=== PATIENT | female | born 1940 | race Caucasian/White ===

== ENCOUNTER 2016-04-15 11:13 | Day surgery (SDC) | payer MEDICARE, OTHER ==
[2016-04-14 08:29] VITALS: BMI 33.2
[~2016-04-15 11:13] MED LIST: LACTATED RINGERS 1,000 ML IV SCH; ceFAZolin 2 GM in SODIUM CHLORIDE 0.9% 100 ML IVPB ONE
[2016-04-15] MEDS ORDERED: LIDOCAINE 1% 20 ML VIAL (10MG/ML) FOR IV START INTRADERMA ONE (11:54)
[2016-04-15] MEDS ORDERED: ONDANSETRON 4 MG/2 ML VIAL IVP ONE ×2 (11:57→15:20)
[2016-04-15] MEDS ORDERED: KETOROLAC 30 MG/ML 1 ML VIAL ONE (12:21)
[2016-04-15] MEDS ORDERED: MIDAZOLAM 2 MG/2 ML VIAL ONE (12:21)
[2016-04-15] MEDS ORDERED: ePHEDrine 50 MG/ML 1 ML AMP ONE (12:21)
[2016-04-15] MEDS ORDERED: SUCCINYLCHOLINE CHLORIDE 100 MG/5 ML SYR IV ONE (12:21)
[2016-04-15] MEDS ORDERED: LIDOCAINE 1% INJ 10MG/ML (20 ML MDV) ONE (12:21)
[2016-04-15] MEDS ORDERED: LABETALOL 5 MG/ML VIAL MDV ONE (12:21)
[2016-04-15] MEDS ORDERED: PROPOFOL 10 MG/ML 20 ML VIAL IV ONE (12:21)
[2016-04-15] MEDS ORDERED: fentaNYL (PF) 50 MCG/ML 2 ML AMP ONE (12:21)
[2016-04-15] MEDS ORDERED: ceFAZolin 1,000 MG in SODIUM CHLORIDE 0.9% 1,000 ML IRRIGATION ONE (13:01)
[2016-04-15] MEDS ORDERED: BUPIVACAINE (PF) 0.5% 30 ML VIAL SQ ONE (14:34)
[2016-04-15 14:52] VITALS: TEMP 97
[2016-04-15] MEDS ORDERED: HYDROcodone/APAP 5-325MG 1 EACH TAB PO PRN ×2 (14:56)
[2016-04-15] MEDS ORDERED: ONDANSETRON 4 MG/2 ML VIAL IVP PRN (14:56)
[2016-04-15] MEDS ORDERED: HYDROmorphone 1 MG/ML 1 ML SYRINGE IVP PRN ×2 (14:56)
--- NOTE | 2016-04-15 15:00 | FL ---
EXAMINATION TYPE: FL guidance operating room, XR foot limited RT DATE OF EXAM: 04/15/2016 2:31 PM CLINICAL HISTORY: CHEILECTOMY procedure of foot. TECHNIQUE: Fluoroscopy. Intraoperative limited views right foot. COMPARISON: None. FINDINGS: Fluoroscopic guidance was provided during Cheilectomy procedure performed by Dr. Michele. A total of 26 seconds of fluoroscopic time was utilized during the procedure and 5 spot intraoperat danay images are acquired. Images acquired show placement of dorsal fixating plate across first metatarsophalangeal joint with a dditional fixating screw. IMPRESSION: As Above.
--- NOTE | 2016-04-15 15:12 | P.OP ---
Date of Procedure: 04/15/16 Preoperative Diagnosis: Failed right first MTP hemiarthroplasty, hallux rigidus Postoperative Diagnosis: Failed right first MTP hemiarthroplasty, hallux rigidus Procedure(s) Performed: 1. Right first MTP arthrodesis 2. Removal of deep implant right first MTP joint Anesthesia: PRIEOT Surgeon: Iván Michele Estimated Blood Loss (ml): 10 IV fluids (ml): 800 Pathology: none sent Condition: stable Disposition: PACU Indications for Procedure: The patient is a very pleasant 75-year-old female was seen in my office with a complaint of right foot pain. The patient had undergone a first MTP hemiarthroplasty many years ago. She initially did well but has had increasing pain, difficulty with shoe wear, and an uncomfortable prominence over the top of her foot. She initially attempted nonsurgical treatment but this eventually stopped working. She requested operative intervention. I recommended surgery was to remove the first MTP hemiarthroplasty and then to assess the amount of shortening of her first ray. We discussed in situ fusion versus distraction arthrodesis using iliac crest allograft. We also discussed the possibility of using proximal tibial bone graft. We discussed potential risks and complication of surgery including but not limited to risk of anesthesia, risk of superficial infection, risk of deep infection, risk of delayed wound healing , risk of wound necrosis, risk of nonunion of the arthrodesis site, risk of malunion of the arthrodesis site, risk of damage to local sensory nerves resulting in temporary or permanent numbness, risk of painful neuroma, risk of chronic pain, risk of chronic swelling, risk of difficulty with shoewear, risk of need for further surgery, risk of vascular compromise to the toe, and possibly loss of life or limb. The patient and her family understand these potential risks. Description of Procedure: The patient was identified in preoperative holding and the correct right foot was marked with my initials. I reviewed the consent form with the patient and her family and all their questions were answered. The patient was then brought back to the operating room. She was positioned on the operating room table and a general anesthetic was administered. All bony prominences were well-padded. A tourniquet was applied to the proximal aspect of her right thigh. A bone foam bump was placed under her right side. Preoperative antibiotics were administered. The patient's right leg was then prepped and draped in the standard sterile fashion. Prior to starting surgery timeout was performed identifying the correct patient, operative extremity, and procedure. The patient's leg was then elevated, exsanguinated with an Esmarch bandage, and the tourniquet was inflated to 250 mmHg. I began by outlining the incision over the dorsomedial aspect of her first MTP joint with a skin marker. Skin incision was made over the prior incision with a 15 blade scalpel. I dissected carefully down to the subcutaneous tissue to the capsule. The capsule was incised longitudinally in line with the skin incision. The dorsal capsule and EHL tendon was retracted laterally. I circumferentially exposed the first metatarsal head and base of the proximal phalanx. Tissue was removed from the base the proximal phalanx with a Tony. Osteotomes were used to gently pry the mor-cap free. The hemiarthroplasty cap appeared loose and was easily removed. After the implant was removed I debrided the joint. A rongeur was used to contour the osteophytes off of the distal first metatarsal and base the proximal phalanx. All bone was passed off to the back table to save for later use as bone graft. Fibrous tissue was removed from the first metatarsal head and base of the proximal phalanx. I then placed a K wire down the central aspect of the metatarsal and a corresponding concave reamer was used to remove the remaining articular cartilage down to bleeding subchondral bone. The K wires withdrawn and used to perforate the subchondral bone to help facilitate fusion. I then placed the K wire down the central axis of the proximal phalanx and used the corresponding convex reamer to remove the remaining articular cartilage down to healthy bleeding bone. A series of curettes was used to remove the fibrous tissue on the stem of the hemiarthroplasty implant. A K wire was then used to perforate the subchondral plate to help facilitate fusion. At this point both the first metatarsal head and base the proximal phalanx were prepared for fusion. I assessed the length of the first ray and there did not appear to be any significant shortening of the first metatarsal compared to the second. I elected not to perform a distraction arthrodesis at this point due to minimal shortening of the first ray. I then used the previously obtained bone graft obtained locally to pack the defect in the proximal phalanx. I was actually able to get quite a bit of bone packed in. I assessed the prepared joint surfaces and there did not appear to be any defects requiring more bone graft site elected not to perform proximal tibial bone graft harvest. The wound was then copiously irrigated. I then positioned the joint for fusion in slight valgus and dorsiflexion. A 0.0625 K wire was placed laterally through the joint to hold the reduction. I then verified positioning of the big toe with C- arm and clinically using a flat plate. Once I was happy with positioning of the joint I placed a 2.7 mm lag screw across the first MTP joint. A 2.7 mm drill bit was used to create a gliding hole on the medial aspect of the base of the proximal phalanx and a 2.0 mm drill bit was used to create a threaded hole in the lateral aspect of the first metatarsal. A fully threaded 2.7 mm lag screw was then placed generating excellent compression across the joint. C-arm was used to verify position of the joint and lag screw. I then placed a revision first MTP fusion plate over the first ray. It was bent to fit the dorsal aspect of prepared bone and held in place with 2 olive tipped K wires. I then proceeded to place 2 nonlocking screws in the most distal 2 holes of the plate in the base of the proximal phalanx. I then placed a 2.7 mm nonlocking screw in the proximal aspect of an eccentric hole proximally in the first metatarsal to help generate compression. I then proceeded to place a 2.7 mm nonlocking screw in the most proximal hole. I then placed 2.7 mm locking screws in the head of the first metatarsal and base of the proximal phalanx. At this point C-arm was brought in for final x-rays. AP x-ray the foot showed acceptable positioning of the first MTP joint with minimal shortening. The hardware appeared to be in appropriate position. There is excellent compression across the joint. Lateral x-ray was taken and showed the plate sitting nicely on the dorsal cortex of the first metatarsal and proximal phalanx. At this point the tourniquet was let down. The wound was copiously irrigated using dural saline. The capsule was closed with a running 0 Vicryl stitch. The deep subcu was reapproximated using 2-0 Vicryl. The skin was closed using 3-0 nylon horizontal mattress stitches. After the incision was closed I verified with the semiconductor manufacturing technician that all instrument sponge and sharp counts were correct. A sterile dressing consisting of Betadine soaked Adaptic, 4 x 4, and web roll was applied. The drapes were then taken down. A very well- padded bulky Roberts type splint was applied. The patient was awoken from her anesthetic and brought to PACU having tied the procedure well. Plan: The patient is going to discharge home as an outpatient. She is remain strictly nonweightbearing on her right leg. She is to leave her splint on at all times. We'll plan on seeing her back in the office in 2 weeks for spine removal and wound exam.
[2016-04-15] MEDS ORDERED: METOCLOPRAMIDE 5 MG/ML 2 ML VIAL IVP ONE (15:41)
[2016-04-15] MEDS ORDERED: PROMETHAZINE INJ 25 MG/ML 1 ML VIAL IVPB ONE (15:58)
[2016-04-15] MEDS ORDERED: HYDROmorphone 1 MG/ML 1 ML SYRINGE IVP ONE (16:17)
[2016-04-15 16:19] VITALS: RESP 16
[2016-04-15 17:04] VITALS: BP 115/70; PULSE 70
== END 2016-04-15 17:49 | disposition home or self-care (01) ==
LOC: OR 11:13
PROVIDERS: ATTEND Orthopaedic Surgery
DX: T84.038A Mechanical loosening of other internal prosthetic joint, initial encounter (principal); M19.071 Primary osteoarthritis, right ankle and foot; M20.21 Hallux rigidus, right foot; Z79.899 Other long term (current) drug therapy; Z79.1 Long term (current) use of non-steroidal anti-inflammatories (NSAID)

== ENCOUNTER → 2016-07-09 | Outpatient (CLI) | payer MEDICARE, OTHER ==
[2016-07-09 10:50] LABS: ALT 22 U/L (9-52); AST 18 U/L (14-36); Alkaline Phosphatase 92 U/L (38-126); Anion Gap 8 mmol/L; Blood Urea Nitrogen 22 mg/dL (7-17); Calcium 9.7 mg/dL (8.4-10.2); Carbon Dioxide 32 mmol/L (22-30); Chloride 102 mmol/L (98-107); Cholesterol 215 mg/dL (<200); Glucose 93 mg/dL (74-99); HDL Cholesterol 69 mg/dL (40-60); Non-African American GFR(MDRD) >60 (>60 ml/min/1.73 sqM); Potassium 3.9 mmol/L (3.5-5.1); Sodium 142 mmol/L (137-145); Total Bilirubin 0.8 mg/dL (0.2-1.3); Total Protein 7.4 g/dL (6.3-8.2); Triglycerides 70 mg/dL (<150)
== END | disposition home or self-care (01) ==
LOC: LABWHC1 08:51
PROVIDERS: ATTEND Internal Medicine Interventional Cardiology
DX: E78.5 Hyperlipidemia, unspecified (principal); I10 Essential (primary) hypertension
CPT/HCPCS: 36415; 80053; 80061; 84443

== ENCOUNTER → 2017-01-13 | Outpatient (CLI) | payer MEDICARE, OTHER ==
[2017-01-13 11:59] LABS: ALT 35 U/L (9-52); AST 21 U/L (14-36); Cholesterol 141 mg/dL (<200); Creatine Kinase 47 U/L (30-135); HDL Cholesterol 61 mg/dL (40-60)
== END | disposition home or self-care (01) ==
LOC: LABWHC1 10:40
PROVIDERS: ATTEND Internal Medicine Interventional Cardiology
DX: I10 Essential (primary) hypertension (principal)
CPT/HCPCS: 36415; 80061; 82550; 84450; 84460

== ENCOUNTER → 2017-08-12 | Outpatient (CLI) | payer MEDICARE, OTHER ==
[2017-08-12 11:51] LABS: HCT 42.7 % (34.0-46.0); HGB 14.9 gm/dL (11.4-16.0); MCH 31.2 pg (25.0-35.0); MCHC 34.9 g/dL (31.0-37.0); MCV 89.3 fL (80.0-100.0); Mean Platelet Volume 8.7; Platelet Count 197 k/uL (150-450); RBC 4.78 m/uL (3.80-5.40); RDW 12.9 % (11.5-15.5); WBC 6.1 k/uL (3.8-10.6)
[2017-08-12 11:54] LABS: Appearance,Urine Cloudy (Clear); Bacteria,Urine Rare /hpf; Bilirubin,Urine Negative (Negative); Blood,Urine Moderate (Negative); Color,Urine Yellow; Glucose,Urine (UA) Negative (Negative); Ketones,Urine Negative (Negative); Leukocyte Esterase,Urine Moderate (Negative); Mucus,Urine Rare /hpf; Nitrite,Urine Positive (Negative); Protein,Urine Negative (Negative); RBC,Urine 5 /hpf (0-5); Specific Gravity,Urine 1.009 (1.001-1.035); Urobilinogen,Urine <2.0 mg/dL (<2.0); WBC,Urine 4 /hpf (0-5)
[2017-08-12 11:57] LABS: Partial Thromboplastin Time 22.9 sec (22.0-30.0); Prothrombin Time 10.2 sec (9.0-12.0)
[2017-08-12 12:04] LABS: ALT 34 U/L (9-52); AST 20 U/L (14-36); Albumin 4.1 g/dL (3.5-5.0); Alkaline Phosphatase 92 U/L (38-126); Anion Gap 13 mmol/L; Blood Urea Nitrogen 13 mg/dL (7-17); Carbon Dioxide 30 mmol/L (22-30); Chloride 100 mmol/L (98-107); Glucose 97 mg/dL (74-99); Potassium 3.5 mmol/L (3.5-5.1); Sodium 143 mmol/L (137-145); Total Bilirubin 0.7 mg/dL (0.2-1.3); Total Protein 6.7 g/dL (6.3-8.2)
== END | disposition home or self-care (01) ==
LOC: LABPAT 11:10
PROVIDERS: ATTEND Orthopaedic Surgery
DX: Z01.812 Encounter for preprocedural laboratory examination (principal); Z51.81 Encounter for therapeutic drug level monitoring; Z79.01 Long term (current) use of anticoagulants
CPT/HCPCS: 36415; 80053; 81001; 85027; 85610; 85730; 87070

== ENCOUNTER → 2017-08-23 | Outpatient (CLI) | payer MEDICARE, OTHER ==
[2017-08-23 10:37] LABS: Appearance,Urine Clear (Clear); Bilirubin,Urine Negative (Negative); Blood,Urine Moderate (Negative); Color,Urine Yellow; Glucose,Urine (UA) Negative (Negative); Ketones,Urine Negative (Negative); Leukocyte Esterase,Urine Trace (Negative); Mucus,Urine Rare /hpf; Nitrite,Urine Negative (Negative); PH, Urine 6.5 (5.0-8.0); Protein,Urine Negative (Negative); RBC,Urine 19 /hpf (0-5); Specific Gravity,Urine 1.018 (1.001-1.035); Squamous Epithelial Cell,Urine <1 /hpf (0-4); WBC,Urine 2 /hpf (0-5)
== END | disposition home or self-care (01) ==
LOC: LABPAT 09:29
PROVIDERS: ATTEND Orthopaedic Surgery
DX: Z01.812 Encounter for preprocedural laboratory examination (principal); M16.12 Unilateral primary osteoarthritis, left hip
CPT/HCPCS: 81001

== ENCOUNTER 2017-08-24 09:27 | Inpatient (IN) | payer MEDICARE, OTHER ==
[2017-08-23 09:01] VITALS: BMI 32.2
[~2017-08-24 09:27] MED LIST changes: +ACETAMINOPHEN TAB 500 MG TAB PO ONE; +DEXAMETHASONE SOD PHOSPHATE 10 MG/ML 1 ML VIAL IV ONE; +LIDOCAINE 1% 20 ML VIAL (10MG/ML) FOR IV START INTRADERMA PRN; +MELOXICAM 7.5 MG TAB PO ONE; +MIDAZOLAM 2 MG/2 ML VIAL IV PRN; +ROPIVACAINE 246.25 MG, EPINEPHrine 0.5 MG, KETOROLAC 30 MG, cloNIDine HCL/PF 80 MCG, WA... MISCELLANE ONE; +SCOPOLAMINE 1.5MG/72HR PATCH TRANSDERM ONE; +TRANEXAMIC ACID 1,000 MG in SODIUM CHLORIDE 0.9% 50 ML IVPB ONE; -ceFAZolin 2 GM in SODIUM CHLORIDE 0.9% 100 ML IVPB ONE; +ceFAZolin IN SWFI 2 GM/20 ML SYRINGE IVP ONE; +fentaNYL (PF) 50 MCG/ML 2 ML AMP IV PRN
[2017-08-24] MEDS ORDERED: ONDANSETRON 4 MG/2 ML VIAL ONE (10:16)
[2017-08-24] MEDS ORDERED: fentaNYL (PF) 50 MCG/ML 2 ML AMP ONE (10:41)
[2017-08-24] MEDS ORDERED: LACTATED RINGERS 1,000 ML BAG IV ONE (10:41)
[2017-08-24] MEDS ORDERED: ePHEDrine SULFATE/0.9% NACL/PF 50 MG/5 ML SYRINGE IV ONE (10:41)
[2017-08-24] MEDS ORDERED: SODIUM CHLORIDE 0.9% 100 ML BAG ONE (10:41)
[2017-08-24] MEDS ORDERED: PROPOFOL 10 MG/ML 20 ML VIAL IV ONE (10:41)
[2017-08-24] MEDS ORDERED: TRANEXAMIC ACID 1,000 MG/10 ML VIAL ONE (10:41)
[2017-08-24] MEDS ORDERED: MIDAZOLAM 2 MG/2 ML VIAL ONE (10:41)
[2017-08-24] MEDS ORDERED: HEPARIN SODIUM,PORCINE 10,000 UNIT/ML 1 ML VIAL ONE (10:41)
--- NOTE | 2017-08-24 12:21 | P.OP ---
Date of Procedure: 08/24/17 Preoperative Diagnosis: Severe osteoarthritis left hip Postoperative Diagnosis: Severe osteoarthritis left hip Procedure(s) Performed: Left total hip arthroplasty with a direct anterior approach Implants: Rogel and nephew Polarstem size 2 standard Rogel [employer] Nephew R3, 3 hole acetabular shell, 48 mm Rogel [employer] Nephew reflection 6.5 mm cancellus screw, 20 mm 2 Rogel [employer] Nephew R3, XLPE 20 acetabular liner Rogel & Nephew Oxinium femoral head 32 m, -3 All components were press-fit. The articulation is Oxinium on polyethylene. Anesthesia: spinal Surgeon: Erick Johns Machine Stapler #1: Gracie Bernabe Estimated Blood Loss (ml): 250 (61 mL returned with Cell Saver) Pathology: other (Femoral head) Condition: stable Disposition: PACU Indications for Procedure: After failure of conservative treatment we discussed the surgical and nonsurgical treatment options at length. Patient wishes to proceed with a total hip arthroplasty with a direct anterior approach. Complications specific to this procedure were discussed at length, including but not limited to infection, leg length discrepancy, dislocation, and nerve injury. Patient is aware of all these complications and informed consent was obtained Operative Findings: The operative findings are consistent with severe osteoarthritis of the left hip Description of Procedure: Patient was seen and evaluated in the preoperative area, consent was reviewed, and the surgical site was marked with a skin marker. Patient was then brought to the operating room and given prophylactic antibiotics intravenously. 1 g of Tranexamic acid was also given. A spinal anesthetic was administered by the anesthesia department. The patient was then placed on the [place] table with the bony prominences well-padded. The hip area was then prepped and draped in usual sterile fashion. A universal timeout was then performed, which confirmed the patient's name, surgical site, ALLERGIES, and procedure being performed. Next the incision site was located at 1 cm distal and 1 cm lateral to the anterior superior iliac spine. The skin and subcutaneous tissues were sharply incised. Incision was carefully dissected down to the fascia overlying the tensor fascia ashley muscle. This fascia was then incised in line with the incision. Next, using blunt finger dissection, the tensor fascia ashley muscle was dissected off its investing fascia. The muscle was then carefully retracted laterally with a cobra retractor over the lateral neck of the femur. Next, the circumflex vessels were identified and cauterized using the AquaMantis device. The anterior hip capsule was then exposed. The capsule was then opened and an inverted T fashion. Cobra retractors were then placed intracapsularly. The proximal femur was then visualized. The femoral neck was then osteotomized appropriate level above the lesser trochanter. Small amount of traction was placed with the [place] table. A small wedge of bone was then removed from the remaining femoral head. Next, using a corkscrew femoral head was easily removed from the acetabulum. On gross visual inspection, the femoral head had complete loss of articular cartilage in multiple periarticular osteophytes. Attention was then turned to the acetabulum. the acetabulum was exposed and any remaining labrum was excised. Sequential reaming of the acetabulum was performed using fluoroscopic guidance. When the appropriate size was reached, a trial was then placed. The position and fit of the trial was checked with fluoroscopy. The trial was then removed. Then, using fluoroscopic guidance, the final implant was impacted at 20 of anteversion and 40 of abduction, and fully seated in the acetabulum. 2 screws were then placed in the acetabulum. Again fluoroscopy was used to check position of the screws. Next, the liner was then impacted, with a 20 elevated liner located in the anterior superior quadrant. Component locking was confirmed. Attention was then directed to the femur. With the aid of the [place] table, the femur was externally rotated to approximately 130, extended, and abducted under the opposite leg. A side hook was then placed under the proximal femur, and the side hook elevator was used to elevate the proximal femur. Retractors were then placed. A capsular release was performed, as well as a release of the conjoined tendon, which afforded excellent visualization of the proximal femur. Next, a box osteotome was used to lateralize the proximal femur. A scrap handler was then used to locate the femoral canal. Sequential broaching was then performed with appropriate size which afforded excellent fixation in the proximal femur. A trial was then placed with appropriate head and neck, and the hip was gently reduced with the aid of the [place] table. Fluoroscopy was then used to check position of the components, as well as to ensure equal leg lengths. The hip was then gently dislocated and the trials were then removed. Final implants were then impacted and the hip was again reduced. Final fluoroscopic x-rays confirmed that the components were in anatomic position, as well as equal leg lengths. The hip was also taken through range of motion, and found to be stable. The hip was then copiously irrigated with antibiotic solution with pulsatile lavage. The hip was then irrigated with Irrisept solution. The soft tissues were then injected with a ropivacaine solution, which consisted of 246.25 mg of ropivacaine, 0.5 mg of epinephrine, 30 mg of Toradol, 80 g of clonidine, and 48.45 mL of sterile water, for a total of 100 mL of fluid injected. A second dose of 1 g of Tranexamic acid was also given. the fascia was then closed with 2-0 strata fix suture. The subcutaneous tissue was closed with 3-0 Vicryl. The subcuticular tissue was closed with 3-0 strata fix suture. The skin was then closed with Dermabond glue and a sterile silver dressing. The patient was then transferred to the recovery room in stable condition. The certified nursing assistant instructor ILDA Lance was required due to the complexity of surgery, and the need for skilled surgical coordinator for positioning, draping, exposure, retraction, and closure of the wound.
--- NOTE | 2017-08-24 12:21 | FL ---
EXAMINATION TYPE: FL guidance operating room DATE OF EXAM: 08/24/2017 CLINICAL HISTORY: Left hip replacement surgery TECHNIQUE: Fluoroscopy. Limited intraoperative views left hip. COMPARISON: None. FINDINGS: Fluoroscopic guidance was provided during hip replacement procedure performed by Dr. Lexie ferrera. A total of 64 seconds of fluoroscopic time was utilized during the procedure and 2 spot intraop erative images are acquired. Images acquired show metallic hardware from total left hip arthroplasty satisfactory in position on single frontal projection. IMPRESSION: As Above.
[2017-08-24] MEDS ORDERED: MAGNESIUM HYDROXIDE 2,400 MG/10 ML CUP PO PRN (12:40)
[2017-08-24] MEDS ORDERED: HYDROmorphone 0.5 MG/0.5 ML SYRINGE IVP PRN ×3 (12:40)
[2017-08-24] MEDS ORDERED: hydrOXYzine PAMOATE 25 MG CAP PO PRN (12:40)
[2017-08-24] MEDS ORDERED: DIAZEPAM 5 MG TAB PO PRN ×2 (12:40)
[2017-08-24] MEDS ORDERED: HYDROcodone/APAP 5-325MG 1 EACH TAB PO PRN ×2 (12:40)
[2017-08-24] MEDS ORDERED: ONDANSETRON 4 MG/2 ML VIAL IVP PRN (12:40)
[2017-08-24] MEDS ORDERED: NALOXONE 0.4 MG/ML 1 ML VIAL IV PRN (12:40)
--- NOTE | 2017-08-24 13:09 | XR ---
EXAMINATION TYPE: XR Hip Limited LT DATE OF EXAM: 08/24/2017 CLINICAL HISTORY: Left hip pain and osteoarthritis. TECHNIQUE: Single AP portable view of left hip is obtained immediately postoperatively. COMPARISON: None. FINDINGS: Metallic hardware from left hip arthroplasty is seen and appears satisfactory in alignment and position. There is evidence of recent surgery with minimal subcutaneous gas noted laterally. IMPRESSION: Metallic hardware from left hip arthroplasty is satisfactory in position.
--- NOTE | 2017-08-24 14:18 | P.CONS ---
History of Present Illness - Reason for Consult Consult date: 08/24/17 Medical management - History of Present Illness This is a 77-year-old female patient of Dr. Sherwood with past medical history of hypertension, hyperlipidemia, obstructive sleep apnea using a dental plate, osteoarthritis, chronic back pain status post lumbar surgery. Patient has been admitted under the care of Dr. Erick Johns status post left total hip arthroplasty. Patient has had no postop complications. Her blood pressure is on the lower side. She denies any lightheadedness or dizziness. No nausea or vomiting. Patient states her pain is controlled at this time. Review of Systems All systems: negative Constitutional: Denies chills, Denies fever Eyes: denies blurred vision, denies pain Ears, nose, mouth and throat: Denies headache, Denies sore throat Cardiovascular: Denies chest pain, Denies shortness of breath Respiratory: Denies cough Gastrointestinal: Denies abdominal pain, Denies diarrhea, Denies nausea, Denies vomiting Genitourinary: Denies dysuria, Denies hematuria Musculoskeletal: Denies myalgias Integumentary: Denies pruritus, Denies rash Neurological: Denies numbness, Denies weakness Psychiatric: Denies anxiety, Denies depression Endocrine: Denies fatigue, Denies weight change Past Medical History Past Medical History: Hypertension, Osteoarthritis (OA), Sleep Apnea/CPAP/BIPAP Additional Past Medical History / Comment(s): Obstructive sleep apnea uses a dental plate versus cpap History of Any Multi-Drug Resistant Organisms: None Reported Past Surgical History: Back Surgery, Hysterectomy, Joint Replacement, Orthopedic Surgery, Tonsillectomy Additional Past Surgical History / Comment(s): left knee replacement, peter carapal tunnel, peter cataract removal and intraocular lens implants, lumbar fusion at L5, left total hip arthroplasty anterior approach Past Anesthesia/Blood Transfusion Reactions: Motion Sickness Past Psychological History: No Psychological Hx Reported Smoking Status: Never smoker Past Alcohol Use History: Occasional Additional Past Alcohol Use History / Comment(s): Patient is a lifelong nonsmoker. She denies any medical marijuana, marijuana or street drug use. She drinks alcohol occasionally. Past Drug Use History: None Reported - Past Family History Mother Family Medical History: No Reported History Additional Family Medical History / Comment(s): Mother at age 62 with history of diabetes and coronary artery disease. Father Additional Family Medical History / Comment(s): Patient does not know any history on her father. She was an only child. Patient has 5 adult children with no major medical problems. Medications and Allergies Home Medications Medication Instructions Recorded Confirmed Type Hydrochlorothiazide [Hydrodiuril] 25 mg PO DAILY 04/14/16 08/24/17 History Hydrocodone/Acetaminophen [[place] 1 tab PO Q8HR PRN 04/14/16 08/24/17 History 5-325] amLODIPine BESYLATE [Norvasc] 5 mg PO DAILY 04/14/16 08/24/17 History Aspirin [Adult Low Dose Aspirin EC] 81 mg PO DAILY 08/23/17 08/24/17 History Atorvastatin [Lipitor] 10 mg PO DAILY 08/23/17 08/24/17 History Cetirizine HCl [Zyrtec] 10 mg PO DAILY 08/23/17 08/24/17 History Multivitamins, Thera [Multivitamin 1 tab PO DAILY 08/23/17 08/24/17 History (formulary)] [place]-3 Fatty Acids [[place]-3] 1,000 mg PO DAILY 08/23/17 08/24/17 History Allergies Allergy/AdvReac Type Severity Reaction Status Date / Time codeine Allergy Vomiting Verified 08/24/17 13:40 Physical Exam Vitals: Vital Signs Temp Pulse Resp BP Pulse Ox 08/24/17 13:33 83 16 107/75 98 08/24/17 13:16 86 16 110/55 99 08/24/17 13:01 75 16 109/55 100 08/24/17 12:45 77 16 109/56 98 08/24/17 12:39 97.6 F 84 16 109/55 93 L 08/24/17 09:50 98.0 F 73 16 109/53 95 Intake and Output 08/23/17 08/24/17 08/24/17 22:59 06:59 14:59 Intake Total 1800 Output Total 150 Balance 1650 Intake: IV 1800 Output: Estimated Blood Loss 150 Gen: This is a 77-year-old female. She is in bed and appears to be comfortable and in no acute distress. HEENT: Head is atraumatic, normocephalic. Pupils equal, round. Sclerae is anicteric. Conjunctiva pink. Mucous members of the mouth are slightly dry. Dentition is in good order. No thrush noted. NECK: Supple. No JVD. No lymphadenopathy. No thyromegaly. LUNGS: Clear to auscultation. No wheezes or rhonchi. No intercostal retractions. HEART: Regular rate and rhythm. No murmur. ABDOMEN: Soft. Bowel sounds are present. No masses. No tenderness. No Mena catheter. EXTREMITIES: No pedal edema. No calf tenderness. Dorsalis pedis is +2 bilaterally. SIA hose on bilaterally. Small dressing in place to the right anterior hip with no breakthrough drainage or bleeding. NEUROLOGICAL: Patient is awake, alert and oriented x3. Cranial nerves 2 through 12 are grossly intact. Assessment and Plan Plan: 1. Osteoarthritis left hip status post total hip arthroplasty, anterior approach. Patient has had no postop complications. Monitor blood pressure. Continue current pain management. Incentive spirometry to reduce incidence of atelectasis and hospital-acquired pneumonia. Continue SIA hose. Patient is on aspirin 325 mg twice daily for DVT prophylaxis. 2. Hypertension. Patient is on Norvasc which will be resumed tomorrow with parameters. Hydrochlorothiazide will be on hold. 3. Hyperlipidemia. Continue Lipitor 10 mg daily. 4. Obstructive sleep apnea, uses dental plate which will be continued. to bring from home. 5. Seasonal ALLERGIES, stable. Discharge plan: To be determined Impression and plan of care have been directed as dictated by the signing physician. Yue Lucia nurse practitioner acting as scribe for signing physician.
[2017-08-24] MEDS: SODIUM CHLORIDE 0.9% 1,000 ML IV SCH (14:56)
[2017-08-24] MEDS: ceFAZolin IN SWFI 2 GM/20 ML SYRINGE IVP SCH (18:03)
[2017-08-24] MEDS: ASPIRIN 325 MG TAB PO SCH (20:22)
[2017-08-24] MEDS ORDERED: SENNOSIDES-DOCUSATE SODIUM 1 EACH TAB PO SCH (21:00)
[2017-08-25] MEDS: ceFAZolin IN SWFI 2 GM/20 ML SYRINGE IVP SCH (00:20)
[2017-08-25] MEDS: SODIUM CHLORIDE 0.9% 1,000 ML IV SCH (04:29)
[2017-08-25 07:15] VITALS: BP 101/56; PULSE 63; RESP 14; TEMP 97.8
[2017-08-25 08:01] LABS: Basophils % (A) 0 %; Eosinophils % (A) 0 %; HCT 34.4 % (34.0-46.0); Lymphocytes # (A) 0.7 k/uL (1.0-4.8); Lymphocytes % (A) 8 %; MCH 29.8 pg (25.0-35.0); MCHC 32.7 g/dL (31.0-37.0); Mean Platelet Volume 7.9; Monocytes # (A) 0.5 k/uL (0-1.0); Monocytes % (A) 5 %; Neutrophils # (A) 7.3 k/uL (1.3-7.7); Neutrophils % (A) 85 %; Platelet Count 175 k/uL (150-450); RBC 3.78 m/uL (3.80-5.40); WBC 8.5 k/uL (3.8-10.6)
[2017-08-25 08:06] LABS: HGB 11.2 gm/dL (11.4-16.0)
--- NOTE | 2017-08-25 08:49 | P.DS ---
Providers Date of admission: 08/24/17 09:27 Expected date of discharge: 08/25/17 Attending physician: Erick Johns Consults: 08/24/17 12:40 Consult Physician Routine Consulting Provider: Sara Sherwood Consult Reason/Comments: medical management Do you want consulting provider notified?: Yes 08/24/17 13:27 Consult Physician Routine Consulting Provider: Augustine Ruiz Reason/Comments: medical management Do you want consulting provider notified?: Yes Primary care physician: Sara Sherwood - Discharge Diagnosis(es) (1) Primary osteoarthritis of left hip Current Visit: Yes Status: Acute (2) S/P total hip arthroplasty Current Visit: Yes Status: Acute Hospital Course: This is a 77-year-old female with known history of degenerative arthritis of the left hip. The patient presents for evaluation. After discussion and consideration patient elects to proceed with total hip arthroplasty. The patient is seen preoperatively by Dr. Johns and medically cleared for surgery by their primary care physician. Patient is admitted to [facility] on 08/24/2017 for total hip arthroplasty. The procedures performed without complication or sequelae. The patient is doing well postoperatively. Labs and vital signs are stable on day of discharge. On day of discharge patient's hip incision is healing well. There is minimal erythema. There is no drainage noted at this time. There is minimal soft tissue swelling to the hip and thigh. Patient has full foot and ankle motion without difficulty or pain. Neurovascular status to the left lower extremity is intact. Patient is discharged home in good condition. Please see med rec for accurate list of home medications. Plan - Discharge Summary Discharge Rx Participant: No New Discharge Prescriptions: New Aspirin 325 mg PO BID #60 tab HYDROcodone/APAP 5-325MG [[place] 5-325] 1 - 2 tab PO Q4-6H PRN #90 tab PRN Reason: Pain Sennosides [Senokot] 1 tab PO BID #60 tablet No Action amLODIPine BESYLATE [Norvasc] 5 mg PO DAILY Hydrochlorothiazide [Hydrodiuril] 25 mg PO DAILY Hydrocodone/Acetaminophen [[place] 5-325] 1 tab PO Q8HR PRN PRN Reason: Pain Multivitamins, Thera [Multivitamin (formulary)] 1 tab PO DAILY Cetirizine HCl [Zyrtec] 10 mg PO DAILY Atorvastatin [Lipitor] 10 mg PO DAILY [place]-3 Fatty Acids [[place]-3] 1,000 mg PO DAILY Aspirin [Adult Low Dose Aspirin EC] 81 mg PO DAILY Discharge Medication List Hydrochlorothiazide [Hydrodiuril] 25 mg PO DAILY 04/14/16 [History] Hydrocodone/Acetaminophen [[place] 5-325] 1 tab PO Q8HR PRN 04/14/16 [History] amLODIPine BESYLATE [Norvasc] 5 mg PO DAILY 04/14/16 [History] Aspirin [Adult Low Dose Aspirin EC] 81 mg PO DAILY 08/23/17 [History] Atorvastatin [Lipitor] 10 mg PO DAILY 08/23/17 [History] Cetirizine HCl [Zyrtec] 10 mg PO DAILY 08/23/17 [History] Multivitamins, Thera [Multivitamin (formulary)] 1 tab PO DAILY 08/23/17 [History ] [place]-3 Fatty Acids [[place]-3] 1,000 mg PO DAILY 08/23/17 [History] Aspirin 325 mg PO BID #60 tab 08/25/17 [Rx] HYDROcodone/APAP 5-325MG [[place] 5-325] 1 - 2 tab PO Q4-6H PRN #90 tab 08/25/17 [ Rx] Sennosides [Senokot] 1 tab PO BID #60 tablet 08/25/17 [Rx] Follow up Appointment(s)/Referral(s): Erick Johns DO [Doctor of Osteopathic Medicine] - 2 Weeks Activity/Diet/Wound Care/Special Instructions: Weightbearing as tolerated with walker Leave dressing intact. Dressing may be removed by home care nurse in 10 days. May shower with dressing on. Follow-up with [facility] in 2 weeks, please call with any questions or concerns [phone] Discharge Disposition: HOME WITH HOME HEALTH SERVICES
[2017-08-25] MEDS ORDERED: LORATADINE 10 MG TAB PO SCH (09:00)
[2017-08-25] MEDS ORDERED: MELOXICAM 7.5 MG TAB PO SCH (09:00)
[2017-08-25] MEDS ORDERED: amLODIPine 5 MG TAB PO SCH (09:00)
[2017-08-25] MEDS ORDERED: ATORVASTATIN 10 MG TAB PO SCH (09:00)
[2017-08-25] MEDS: ASPIRIN 325 MG TAB PO SCH (09:21)
--- NOTE | 2017-08-25 14:08 | P.PN ---
Subjective Progress Note Date: 08/25/17 This is a 77-year-old female patient of Dr. Sherwood with past medical history of hypertension, hyperlipidemia, obstructive sleep apnea using a dental plate, osteoarthritis, chronic back pain status post lumbar surgery. Patient has been admitted under the care of Dr. Erick Johns status post left total hip arthroplasty. Patient has had no postop complications. Her blood pressure is on the lower side. She denies any lightheadedness or dizziness. No nausea or vomiting. Patient states her pain is controlled at this time. 08/25: She has been doing very well today and is waiting for discharge home. She has had no postop complications. Objective - Vital Signs Vital signs: Vital Signs Temp 97.8 F 08/25/17 07:10 Pulse 63 08/25/17 07:10 Resp 14 08/25/17 07:10 BP 101/56 08/25/17 07:10 Pulse Ox 98 08/25/17 07:10 Intake & Output 08/24/17 08/25/17 08/25/17 18:59 06:59 18:59 Intake Total 1800 2155 Output Total 150 Balance 1650 2155 Weight 74.843 kg Intake: IV 1800 Intake, IV Titration 915 Amount Sodium Chloride 0.9% 1, 915 000 ml @ 65 mls/hr IV . [id number] [place] Rx#:[id number] Oral 1240 Output: Estimated Blood Loss 150 Other: Voiding Method Toilet Toilet # Voids 3 2 # Bowel Movements 0 # Emeses 0 - Exam Gen: This is a 77-year-old female. She is in bed and appears to be comfortable and in no acute distress. HEENT: Head is atraumatic, normocephalic. Pupils equal, round. Sclerae is anicteric. Conjunctiva pink. Mucous members of the mouth are slightly dry. Dentition is in good order. No thrush noted. NECK: Supple. No JVD. No lymphadenopathy. No thyromegaly. LUNGS: Clear to auscultation. No wheezes or rhonchi. No intercostal retractions. HEART: Regular rate and rhythm. No murmur. ABDOMEN: Soft. Bowel sounds are present. No masses. No tenderness. No Mena catheter. EXTREMITIES: No pedal edema. No calf tenderness. Dorsalis pedis is +2 bilaterally. SIA hose on bilaterally. Small dressing in place to the right anterior hip with no breakthrough drainage or bleeding. NEUROLOGICAL: Patient is awake, alert and oriented x3. Cranial nerves 2 through 12 are grossly intact. - Labs CBC & Chem 7: 08/25/17 07:19 Labs: Abnormal Lab Results - Last 24 Hours (Table) 08/25/17 Range/Units 07:19 RBC 3.78 L (3.80-5.40) m/uL Hgb 11.2 L D (11.4-16.0) gm/dL Lymphocytes # 0.7 L (1.0-4.8) k/uL Assessment and Plan Plan: 1. Osteoarthritis left hip status post total hip arthroplasty, anterior approach. Patient has had no postop complications. Monitor blood pressure. Continue current pain management. Incentive spirometry to reduce incidence of atelectasis and hospital-acquired pneumonia. Continue SIA hose. Patient is on aspirin 325 mg twice daily for DVT prophylaxis. 2. Hypertension. Patient is on Norvasc which will be resumed tomorrow with parameters. Hydrochlorothiazide will be on hold. 3. Hyperlipidemia. Continue Lipitor 10 mg daily. 4. Obstructive sleep apnea, uses dental plate which will be continued. to bring from home. 5. Seasonal ALLERGIES, stable. Discharge plan: home with [facility] Impression and plan of care have been directed as dictated by the signing physician. Yue Lucia nurse practitioner acting as scribe for signing physician.
== END 2017-08-25 11:21 | disposition home health service (06) | DRG 470 ==
LOC: 2ORMAIN 09:27 → 3SUR 13:06
PROVIDERS: ADMIT Orthopaedic Surgery; ATTEND Orthopaedic Surgery
PROC: 0SRB06A Replacement of Left Hip Joint with Oxidized Zirconium on Polyethylene Synthetic Substitute, Uncemented, Open Approach (ICD-10-PCS; principal; 2017-08-24 11:30)
DX: M16.12 Unilateral primary osteoarthritis, left hip (principal); E78.5 Hyperlipidemia, unspecified; G47.33 Obstructive sleep apnea (adult) (pediatric); I10 Essential (primary) hypertension; Z96.1 Presence of intraocular lens; Z96.652 Presence of left artificial knee joint; G89.29 Other chronic pain; M54.9 Dorsalgia, unspecified; Z79.82 Long term (current) use of aspirin; Z79.899 Other long term (current) drug therapy; Z82.49 Family history of ischemic heart disease and other diseases of the circulatory system; Z83.3 Family history of diabetes mellitus; Z90.710 Acquired absence of both cervix and uterus; Z98.42 Cataract extraction status, left eye; Z98.41 Cataract extraction status, right eye; Z88.5 Allergy status to narcotic agent; Z98.1 Arthrodesis status
CPT/HCPCS: 36415; 73501; 85025; 86850; 86891; 86900; 86901; 88300

== ENCOUNTER → 2018-03-31 | Outpatient (CLI) | payer MEDICARE ==
[2018-03-31 09:20] LABS: HCT 43.7 % (34.0-46.0); MCH 29.6 pg (25.0-35.0); MCHC 32.1 g/dL (31.0-37.0); MCV 92.4 fL (80.0-100.0); Mean Platelet Volume 7.3; Platelet Count 218 k/uL (150-450); RBC 4.73 m/uL (3.80-5.40); RDW 13.1 % (11.5-15.5); WBC 6.6 k/uL (3.8-10.6)
[2018-03-31 09:33] LABS: INR 0.9 (<1.2); Partial Thromboplastin Time 23.9 sec (22.0-30.0)
[2018-03-31 09:43] LABS: ALT 21 U/L (9-52); AST 17 U/L (14-36); Albumin 3.9 g/dL (3.5-5.0); Alkaline Phosphatase 74 U/L (38-126); Anion Gap 5 mmol/L; Blood Urea Nitrogen 17 mg/dL (7-17); Calcium 9.6 mg/dL (8.4-10.2); Carbon Dioxide 31 mmol/L (22-30); Chloride 105 mmol/L (98-107); Glucose 98 mg/dL (74-99); Potassium 3.9 mmol/L (3.5-5.1); Sodium 141 mmol/L (137-145); Total Bilirubin 0.8 mg/dL (0.2-1.3); Total Protein 6.7 g/dL (6.3-8.2)
[2018-03-31 10:07] LABS: Appearance,Urine Clear (Clear); Bilirubin,Urine Negative (Negative); Blood,Urine Moderate (Negative); Color,Urine Yellow; Glucose,Urine (UA) Negative (Negative); Ketones,Urine Negative (Negative); Leukocyte Esterase,Urine Small (Negative); Mucus,Urine Rare /hpf; Nitrite,Urine Negative (Negative); Protein,Urine Negative (Negative); RBC,Urine 20 /hpf (0-5); Specific Gravity,Urine 1.012 (1.001-1.035); Squamous Epithelial Cell,Urine 1 /hpf (0-4); Urobilinogen,Urine <2.0 mg/dL (<2.0); WBC,Urine 5 /hpf (0-5)
== END | disposition home or self-care (01) ==
LOC: LABPAT 08:33
PROVIDERS: ATTEND Orthopaedic Surgery
DX: Z01.812 Encounter for preprocedural laboratory examination (principal)
CPT/HCPCS: 80053; 81001; 85027; 85610; 85730; 87070

== ENCOUNTER → 2018-04-01 | Outpatient (CLI) | payer MEDICARE | END | disposition home or self-care (01) | LOC: LABPAT 08:04 | PROVIDERS: ATTEND Orthopaedic Surgery Hand Surgery | DX: Z01.812 Encounter for preprocedural laboratory examination (principal) | CPT/HCPCS: 36415; 86850; 86900; 86901 ==

== ENCOUNTER 2018-04-12 05:34 | Inpatient (IN) | payer MEDICARE, OTHER ==
[~2018-04-12 05:34] MED LIST changes: -DEXAMETHASONE SOD PHOSPHATE 10 MG/ML 1 ML VIAL IV ONE; -LACTATED RINGERS 1,000 ML IV SCH; +MIDAZOLAM (PF) 2 MG/2 ML VIAL IV PRN; -MIDAZOLAM 2 MG/2 ML VIAL IV PRN; -ROPIVACAINE 246.25 MG, EPINEPHrine 0.5 MG, KETOROLAC 30 MG, cloNIDine HCL/PF 80 MCG, WA... MISCELLANE ONE; -SCOPOLAMINE 1.5MG/72HR PATCH TRANSDERM ONE
[2018-04-12] MEDS ORDERED: ROPIVACAINE 246.25 MG, EPINEPHrine 0.5 MG, KETOROLAC 30 MG, cloNIDine HCL/PF 80 MCG, WA... MISCELLANE ONE ×5 (06:03)
[2018-04-12] MEDS: LACTATED RINGERS 1,000 ML IV SCH ×2 (06:20→16:53)
[2018-04-12] MEDS ORDERED: ONDANSETRON 4 MG/2 ML VIAL IVP ONE (06:39)
[2018-04-12] MEDS ORDERED: DEXAMETHASONE SOD PHOS (MDV) 100 MG/10 ML VIAL IV ONE (06:39)
[2018-04-12] MEDS ORDERED: SODIUM CHLORIDE 0.9% 100 ML BAG ONE (06:53)
[2018-04-12] MEDS ORDERED: ePHEDrine SULFATE/0.9% NACL/PF 50 MG/5 ML SYRINGE IV ONE (06:53)
[2018-04-12] MEDS ORDERED: SODIUM CHLORIDE 0.9% IRRIG 1,000 ML BTL IRRIGATION ONE (06:53)
[2018-04-12] MEDS ORDERED: LIDOCAINE 1% INJ 10MG/ML (20 ML MDV) ONE (06:53)
[2018-04-12] MEDS ORDERED: MIDAZOLAM 2 MG/2 ML VIAL ONE (06:53)
[2018-04-12] MEDS ORDERED: PROPOFOL 10 MG/ML 20 ML VIAL IV ONE (06:53)
[2018-04-12] MEDS ORDERED: SUCCINYLCHOLINE CHLORIDE 100 MG/5 ML SYR IV ONE (06:53)
[2018-04-12] MEDS ORDERED: TRANEXAMIC ACID 1,000 MG/10 ML VIAL ONE (06:53)
[2018-04-12] MEDS ORDERED: fentaNYL (PF) 50 MCG/ML 2 ML AMP ONE (06:53)
[2018-04-12] MEDS ORDERED: HEPARIN SODIUM,PORCINE 10,000 UNIT/ML 1 ML VIAL ONE (06:53)
[2018-04-12] MEDS ORDERED: ceFAZolin 3,000 MG in SODIUM CHLORIDE 0.9% IRRIGATIO 3,000 ML IRRIGATION ONE (06:58)
[2018-04-12] MEDS ORDERED: hydrOXYzine PAMOATE 25 MG CAP PO PRN (07:03)
[2018-04-12] MEDS ORDERED: HYDROmorphone 0.5 MG/0.5 ML SYRINGE IVP PRN ×3 (07:03)
[2018-04-12] MEDS ORDERED: DIAZEPAM 5 MG TAB PO PRN (07:03)
[2018-04-12] MEDS ORDERED: NALOXONE 0.4 MG/ML 1 ML VIAL IV PRN (07:03)
[2018-04-12] MEDS ORDERED: HYDROcodone/APAP 5-325MG 1 EACH TAB PO PRN ×2 (07:03)
[2018-04-12] MEDS ORDERED: ONDANSETRON 4 MG/2 ML VIAL IVP PRN (07:03)
[2018-04-12] MEDS ORDERED: MAGNESIUM HYDROXIDE 2,400 MG/10 ML CUP PO PRN (07:03)
--- NOTE | 2018-04-12 08:33 | P.OP ---
Date of Procedure: 04/12/18 Preoperative Diagnosis: Severe osteoarthritis right hip Postoperative Diagnosis: Severe osteoarthritis right hip Procedure(s) Performed: Right total hip arthroplasty with a direct anterior approach Implants: Rogel and nephew Polarstem size 2 standard Rogel & Nephew R3, 3 hole acetabular shell, 48 mm Rogel [employer] Nephew reflection 6.5 mm cancellus screw, 20 mm 2 Rogel [employer] Nephew R3, XLPE 20 acetabular liner Rogel & Nephew Oxinium femoral head 32 m, -3 All components were press-fit. The articulation is Oxinium on polyethylene. Anesthesia: GETA Surgeon: Erick Johns Boarding House Cook #1: Gracie Bernabe Estimated Blood Loss (ml): 180 (71 mL returned with Cell Saver) Pathology: other (Femoral head) Condition: stable Disposition: PACU Indications for Procedure: After failure of conservative treatment we discussed the surgical and nonsurgical treatment options at length. Patient wishes to proceed with a total hip arthroplasty with a direct anterior approach. Complications specific to this procedure were discussed at length, including but not limited to infection, leg length discrepancy, dislocation, and nerve injury. Patient is aware of all these complications and informed consent was obtained Operative Findings: The operative findings are consistent with severe osteoarthritis of the right hip Description of Procedure: Patient was seen and evaluated in the preoperative area, consent was reviewed, and the surgical site was marked with a skin marker. Patient was then brought to the operating room and given prophylactic antibiotics intravenously. 1 g of Tranexamic acid was also given. A general anesthetic was administered by the anesthesia department. The patient was then placed on the [place] table with the bony prominences well-padded. The hip area was then prepped and draped in usual sterile fashion. A universal timeout was then performed, which confirmed the patient's name, surgical site, ALLERGIES, and procedure being performed. Next the incision site was located at 1 cm distal and 1 cm lateral to the anterior superior iliac spine. The skin and subcutaneous tissues were sharply incised. Incision was carefully dissected down to the fascia overlying the tensor fascia ashley muscle. This fascia was then incised in line with the incision. Next, using blunt finger dissection, the tensor fascia ashley muscle was dissected off its investing fascia. The muscle was then carefully retracted laterally with a cobra retractor over the lateral neck of the femur. Next, the circumflex vessels were identified and cauterized using the AquaMantis device. The anterior hip capsule was then exposed. The capsule was then opened and an inverted T fashion. Cobra retractors were then placed intracapsularly. The proximal femur was then visualized. The femoral neck was then osteotomized appropriate level above the lesser trochanter. Small amount of traction was placed with the [place] table. A small wedge of bone was then removed from the remaining femoral head. Next, using a corkscrew femoral head was easily removed from the acetabulum. On gross visual inspection, the femoral head had complete loss of articular cartilage in multiple periarticular osteophytes. Attention was then turned to the acetabulum. the acetabulum was exposed and any remaining labrum was excised. Sequential reaming of the acetabulum was performed using fluoroscopic guidance. When the appropriate size was reached, a trial was then placed. The position and fit of the trial was checked with fluoroscopy. The trial was then removed. Then, using fluoroscopic guidance, the final implant was impacted at 20 of anteversion and 40 of abduction, and fully seated in the acetabulum. 2 screws were then placed in the acetabulum. Again fluoroscopy was used to check position of the screws. Next, the liner was then impacted, with a 20 elevated liner located in the anterior superior quadrant. Component locking was confirmed. Attention was then directed to the femur. With the aid of the [place] table, the femur was externally rotated to approximately 130, extended, and abducted under the opposite leg. A side hook was then placed under the proximal femur, and the side hook elevator was used to elevate the proximal femur. Retractors were then placed. A capsular release was performed, as well as a release of the conjoined tendon, which afforded excellent visualization of the proximal femur. Next, a box osteotome was used to lateralize the proximal femur. A explosive ordnance handler was then used to locate the femoral canal. Sequential broaching was then performed with appropriate size which afforded excellent fixation in the proximal femur. A trial was then placed with appropriate head and neck, and the hip was gently reduced with the aid of the [place] table. Fluoroscopy was then used to check position of the components, as well as to ensure equal leg lengths. The hip was then gently dislocated and the trials were then removed. Final implants were then impacted and the hip was again reduced. Final fluoroscopic x-rays confirmed that the components were in anatomic position, as well as equal leg lengths. The hip was also taken through range of motion, and found to be stable. The hip was then copiously irrigated with antibiotic solution with pulsatile lavage. The hip was then irrigated with Irrisept solution. The soft tissues were then injected with a ropivacaine solution, which consisted of 246.25 mg of ropivacaine, 0.5 mg of epinephrine, 30 mg of Toradol, 80 g of clonidine, and 48.45 mL of sterile water, for a total of 100 mL of fluid injected. A second dose of 1 g of Tranexamic acid was also given. the fascia was then closed with 2-0 strata fix suture. The subcutaneous tissue was closed with 3-0 Vicryl. The subcuticular tissue was closed with 3-0 strata fix suture. The skin was then closed with Dermabond glue and a sterile silver dressing. The patient was then transferred to the recovery room in stable condition. The delivery driver assistant ILDA Lance was required due to the complexity of surgery, and the need for skilled instructor adjunct surgical technician for positioning, draping, exposure, retraction, and closure of the wound.
[2018-04-12] MEDS: HYDROmorphone 1 MG/ML 1 ML SYRINGE IVP ONE ×2 (09:18→11:45)
[2018-04-12] MEDS ORDERED: diphenhydrAMINE 50 MG/ML 1 ML VIAL IVP ONE (09:19)
--- NOTE | 2018-04-12 09:44 | XR ---
EXAMINATION TYPE: XR Hip Limited RT DATE OF EXAM: 04/12/2018 CLINICAL HISTORY: Right hip pain and osteoarthritis. TECHNIQUE: Single AP portable view of right hip is obtained immediately postoperatively. COMPARISON: None. FINDINGS: Metallic hardware from right hip arthroplasty is seen and appears satisfactory in alignment and position. There is evidence of recent surgery with subcutaneous gas noted laterally. IMPRESSION: Metallic hardware from right hip arthroplasty is satisfactory in position.
--- NOTE | 2018-04-12 11:55 | FL ---
Fluoroscopy INDICATION: Pain FINDINGS: Fluoroscopy time: 37 seconds. Images obtained: 2. IMPRESSIONS: 1. Documentation of fluoroscopy.
[2018-04-12 12:59] VITALS: BMI 33.2
--- NOTE | 2018-04-12 15:45 | P.CONS ---
History of Present Illness - Reason for Consult Consult date: 04/12/18 Medical management - History of Present Illness This is a 77-year-old female patient of Dr. Sherwood with past medical history of hypertension, hyperlipidemia, obstructive sleep apnea using a dental plate, osteoarthritis, chronic back pain status post lumbar surgery. She is status post left total hip arthroplasty in August 2017. She now presents with right total hip arthroplasty with Dr. Johns. Patient has had no postop complications. Blood pressure is stable. She denies any lightheadedness or dizziness. No headache. No nausea or vomiting. Patient states her pain is controlled at this time. Review of Systems All systems: negative Constitutional: Denies chills, Denies fever, Denies poor appetite, Denies weakness Eyes: denies blurred vision, denies pain Ears, nose, mouth and throat: Denies dysphagia, Denies headache, Denies sore throat, Denies vertigo Cardiovascular: Denies chest pain, Denies edema, Denies leg edema, Denies lightheadedness, Denies shortness of breath, Denies syncope Respiratory: Denies cough, Denies cough with sputum, Denies dyspnea, Denies excessive sputum, Denies hemoptysis, Denies home oxygen, Denies wheezing Gastrointestinal: Denies abdominal pain, Denies diarrhea, Denies loss of appetite, Denies melena, Denies nausea, Denies vomiting Genitourinary: Denies dysuria, Denies hematuria Musculoskeletal: Denies frequent falls, Denies gait dysfunction, Denies muscle weakness, Denies myalgias Integumentary: Reports wounds, Denies pruritus, Denies rash Neurological: Denies aphasia, Denies change in mentation, Denies confusion, Denies head injury, Denies numbness, Denies seizures, Denies vertigo, Denies weakness Psychiatric: Denies anxiety, Denies depression Endocrine: Denies fatigue, Denies weight change Past Medical History Past Medical History: GERD/Reflux, Hypertension, Osteoarthritis (OA), Sleep Apnea/CPAP/BIPAP Additional Past Medical History / Comment(s): Obstructive sleep apnea uses a dental plate versus cpap, History of Any Multi-Drug Resistant Organisms: None Reported Past Surgical History: Back Surgery, Hysterectomy, Joint Replacement, Orthopedic Surgery, Tonsillectomy Additional Past Surgical History / Comment(s): left knee replacement, peter carapal tunnel, peter cataract removal,, lumbar fusion at L5, left total hip arthroplasty anterior approach Past Anesthesia/Blood Transfusion Reactions: Motion Sickness Smoking Status: Never smoker - Past Family History Mother Family Medical History: No Reported History Additional Family Medical History / Comment(s): Mother at age 62 with history of diabetes and coronary artery disease.. Father Additional Family Medical History / Comment(s): Patient does not know any history on her father. She was an only child. Patient has 5 adult children with no major medical problems. Daughter(s) Family Medical History: No Reported History Medications and Allergies Home Medications Medication Instructions Recorded Confirmed Type Hydrochlorothiazide [Hydrodiuril] 25 mg PO DAILY 04/14/16 04/12/18 History Hydrocodone/Acetaminophen [[place] 1 tab PO Q8HR PRN 04/14/16 04/12/18 History 5-325] Aspirin [Adult Low Dose Aspirin EC] 81 mg PO DAILY 08/23/17 04/12/18 History Atorvastatin [Lipitor] 10 mg PO DAILY 08/23/17 04/12/18 History Cetirizine HCl [Zyrtec] 10 mg PO DAILY 08/23/17 04/12/18 History Multivitamins, Thera [Multivitamin 1 tab PO DAILY 08/23/17 04/12/18 History (formulary)] [place]-3 Fatty Acids [[place]-3] 1,000 mg PO DAILY 08/23/17 04/12/18 History amLODIPine BESYLATE [Norvasc] 2.5 mg PO DAILY 04/06/18 04/12/18 History Allergies Allergy/AdvReac Type Severity Reaction Status Date / Time codeine Allergy Vomiting Verified 04/12/18 12:50 Physical Exam Vitals: Vital Signs Temp Pulse Resp BP BP Pulse Ox 04/12/18 11:31 79 16 114/58 97 04/12/18 11:00 79 16 136/74 97 04/12/18 10:31 80 16 119/60 97 04/12/18 10:01 93 14 142/63 99 04/12/18 09:46 83 16 131/66 98 04/12/18 09:31 94 16 131/65 98 04/12/18 09:15 86 16 142/71 98 04/12/18 09:01 85 16 140/70 98 04/12/18 08:46 84 10 L 139/67 97 04/12/18 08:42 96.8 F L 90 10 L 142/67 96 04/12/18 06:19 97 F L 70 16 129/68 96 Intake and Output 04/11/18 04/12/18 04/12/18 22:59 06:59 14:59 Intake Total 801 50 Output Total 250 Balance 801 -200 Intake: IV 801 50 Output: Estimated Blood Loss 250 Gen: This is a 77-year-old female. She is in bed and appears to be comfortable and in no acute distress. HEENT: Head is atraumatic, normocephalic. Pupils equal, round. Sclerae is anicteric. Conjunctiva pink. Mucous members of the mouth are slightly dry. Dentition is in good order. No thrush noted. NECK: Supple. No JVD. No lymphadenopathy. No thyromegaly. LUNGS: Clear to auscultation. No wheezes or rhonchi. No intercostal retractions. HEART: Regular rate and rhythm. No murmur. ABDOMEN: Soft. Bowel sounds are present. No masses. No tenderness. No Mena catheter. EXTREMITIES: No pedal edema. No calf tenderness. Dorsalis pedis is +2 bilaterally. SIA hose on bilaterally. Small dressing in place to the right anterior hip with no breakthrough drainage or bleeding. NEUROLOGICAL: Patient is awake, alert and oriented x3. Cranial nerves 2 through 12 are grossly intact. Assessment and Plan Plan: 1. Osteoarthritis right hip status post total hip arthroplasty, anterior approach. Patient has had no postop complications. Monitor blood pressure. Continue current pain management. Incentive spirometry to reduce incidence of atelectasis and hospital-acquired pneumonia. Continue SIA hose. Patient is on aspirin 325 mg twice daily for DVT prophylaxis. 2. Hypertension. Continue Norvasc 2.5 mg daily. Hydrochlorothiazide will be on hold. 3. Hyperlipidemia. Continue Lipitor 10 mg daily. 4. Obstructive sleep apnea, uses dental plate which will be continued. 5. Seasonal ALLERGIES, stable. Discharge plan: To be determined but most likely return home with homecare. Impression and plan of care have been directed as dictated by the signing physician. Yue Lucia nurse practitioner acting as scribe for signing physician.
[2018-04-12] MEDS: SODIUM CHLORIDE 0.9% 1,000 ML IV SCH ×2 (16:52→20:24)
[2018-04-12] MEDS: ceFAZolin IN SWFI 2 GM/20 ML SYRINGE IVP SCH ×2 (17:32→23:11)
[2018-04-12] MEDS: ASPIRIN 325 MG TAB PO SCH (20:13)
[2018-04-12] MEDS ORDERED: SENNOSIDES-DOCUSATE SODIUM 1 EACH TAB PO SCH (21:00)
[2018-04-13] MEDS: ASPIRIN 325 MG TAB PO SCH (08:05)
[2018-04-13 08:11] LABS: Basophils % (A) 0 %; Eosinophils % (A) 0 %; HCT 34.8 % (34.0-46.0); HGB 11.5 gm/dL (11.4-16.0); Lymphocytes # (A) 0.9 k/uL (1.0-4.8); Lymphocytes % (A) 12 %; MCH 30.5 pg (25.0-35.0); MCV 92.5 fL (80.0-100.0); Mean Platelet Volume 7.7; Monocytes # (A) 0.3 k/uL (0-1.0); Monocytes % (A) 5 %; Neutrophils # (A) 6.2 k/uL (1.3-7.7); Neutrophils % (A) 83 %; Platelet Count 143 k/uL (150-450); RBC 3.76 m/uL (3.80-5.40); RDW 13.1 % (11.5-15.5); WBC 7.6 k/uL (3.8-10.6)
[2018-04-13 08:13] VITALS: BP 100/54; PULSE 90; RESP 18; TEMP 98.1
[2018-04-13] MEDS ORDERED: amLODIPine 2.5 MG TAB PO SCH (09:00)
[2018-04-13] MEDS ORDERED: MELOXICAM 7.5 MG TAB PO SCH (09:00)
[2018-04-13] MEDS ORDERED: LORATADINE 10 MG TAB PO SCH (09:00)
[2018-04-13] MEDS ORDERED: ATORVASTATIN 10 MG TAB PO SCH (09:00)
--- NOTE | 2018-04-13 09:19 | P.DS ---
Providers Date of admission: 04/12/18 05:34 Expected date of discharge: 04/13/18 Attending physician: Erick Johns Consults: 04/12/18 07:03 Consult Physician Routine Consulting Provider: Augustine Ruiz Reason/Comments: medical management Do you want consulting provider notified?: Yes Primary care physician: Sara Sherwood - Discharge Diagnosis(es) (1) Osteoarthritis of right hip Current Visit: Yes Status: Acute (2) Status post total hip replacement, right Current Visit: Yes Status: Acute Hospital Course: This is a 77-year-old female with known history of degenerative arthritis of the right hip. The patient presents for evaluation. After discussion and consideration patient elects to proceed with total hip arthroplasty. The patient is seen preoperatively by Dr. Johns and medically cleared for surgery by their primary care physician. Patient is admitted to [facility] on 04/12/2018 for total hip arthroplasty. The procedures performed without complication or sequelae. The patient is doing well postoperatively. Labs and vital signs are stable on day of discharge. On day of discharge patient's hip incision is healing well. There is minimal erythema. There is no drainage noted at this time. There is minimal soft tissue swelling to the hip and thigh. Patient has full foot and ankle motion without difficulty or pain. Neurovascular status to the right lower extremity is intact. Patient is discharged home in good condition. Please see med rec for accurate list of home medications. Plan - Discharge Summary Discharge Rx Participant: No New Discharge Prescriptions: New Aspirin 325 mg PO BID #60 tab HYDROcodone/APAP 5-325MG [[place] 5-325] 1 - 2 tab PO Q6HR PRN #56 tab PRN Reason: Pain Sennosides [Senokot] 1 tab PO BID #60 tablet No Action Hydrochlorothiazide [Hydrodiuril] 25 mg PO DAILY Hydrocodone/Acetaminophen [[place] 5-325] 1 tab PO Q8HR PRN PRN Reason: Pain Multivitamins, Thera [Multivitamin (formulary)] 1 tab PO DAILY Cetirizine HCl [Zyrtec] 10 mg PO DAILY Atorvastatin [Lipitor] 10 mg PO DAILY [place]-3 Fatty Acids [[place]-3] 1,000 mg PO DAILY Aspirin [Adult Low Dose Aspirin EC] 81 mg PO DAILY amLODIPine BESYLATE [Norvasc] 2.5 mg PO DAILY Discharge Medication List Hydrochlorothiazide [Hydrodiuril] 25 mg PO DAILY 04/14/16 [History] Hydrocodone/Acetaminophen [[place] 5-325] 1 tab PO Q8HR PRN 04/14/16 [History] Aspirin [Adult Low Dose Aspirin EC] 81 mg PO DAILY 08/23/17 [History] Atorvastatin [Lipitor] 10 mg PO DAILY 08/23/17 [History] Cetirizine HCl [Zyrtec] 10 mg PO DAILY 08/23/17 [History] Multivitamins, Thera [Multivitamin (formulary)] 1 tab PO DAILY 08/23/17 [History ] [place]-3 Fatty Acids [[place]-3] 1,000 mg PO DAILY 08/23/17 [History] amLODIPine BESYLATE [Norvasc] 2.5 mg PO DAILY 04/06/18 [History] Aspirin 325 mg PO BID #60 tab 04/13/18 [Rx] HYDROcodone/APAP 5-325MG [[place] 5-325] 1 - 2 tab PO Q6HR PRN #56 tab 04/13/18 [ Rx] Sennosides [Senokot] 1 tab PO BID #60 tablet 04/13/18 [Rx] Follow up Appointment(s)/Referral(s): Erick Johns DO [Doctor of Osteopathic Medicine] - 2 Weeks Activity/Diet/Wound Care/Special Instructions: Weightbearing as tolerated with walker. Leave dressing intact. Dressing may be removed by home care nurse in 10 days. May shower with dressing on. Please follow-up with [facility] in 2 weeks and call with any questions or concerns, . Discharge Disposition: HOME WITH HOME HEALTH SERVICES
[2018-04-13] MEDS: LACTATED RINGERS 1,000 ML IV SCH (09:50)
[2018-04-13] MEDS ORDERED: MULTIVITAMINS, THERA 1 EACH TAB PO SCH (12:00)
--- NOTE | 2018-04-14 13:37 | P.PN ---
Subjective Progress Note Date: 04/13/18 This is a 77-year-old female patient of Dr. Sherwood with past medical history of hypertension, hyperlipidemia, obstructive sleep apnea using a dental plate, osteoarthritis, chronic back pain status post lumbar surgery. She is status post left total hip arthroplasty in August 2017. She now presents with right total hip arthroplasty with Dr. Johns. Patient has had no postop complications. Blood pressure is stable. She denies any lightheadedness or dizziness. No headache. No nausea or vomiting. Patient states her pain is controlled at this time. 04/13: Patient has been afebrile, blood pressure 100/54, pulse ox 96% on room air , heart rate running in the 80s and 90s. Hemoglobin is 11.5. Patient is scheduled for discharge home today. She is on aspirin for DVT prophylaxis. Medication reconciliation has been reviewed. Review of Systems All systems: negative Constitutional: Denies chills, Denies fever, Denies poor appetite Eyes: denies blurred vision, denies pain Ears, nose, mouth and throat: Denies dysphagia, Denies headache, Denies sore throat, Denies vertigo Cardiovascular: Denies chest pain, Denies edema, Denies leg edema, Denies lightheadedness, Denies shortness of breath, Denies syncope Respiratory: Denies cough, Denies cough with sputum, Denies dyspnea, Denies excessive sputum, Denies hemoptysis, Denies home oxygen, Denies wheezing Gastrointestinal: Denies abdominal pain, Denies diarrhea, Denies loss of appetite, Denies melena, Denies nausea, Denies vomiting Genitourinary: Denies dysuria, Denies hematuria Musculoskeletal: Denies frequent falls, Denies gait dysfunction, Denies muscle weakness, Denies myalgias Integumentary: Reports wounds, Denies pruritus, Denies rash Neurological: Denies aphasia, Denies change in mentation, Denies confusion, Denies head injury, Denies numbness, Denies seizures, Denies vertigo, Denies weakness Psychiatric: Denies anxiety, Denies depression Endocrine: Denies fatigue, Denies weight change Objective - Vital Signs Vital signs: Vital Signs Temp 98.1 F 04/13/18 08:12 Pulse 90 04/13/18 08:12 Resp 18 04/13/18 08:12 BP 100/54 04/13/18 08:12 Pulse Ox 96 04/13/18 08:12 Intake & Output 04/12/18 04/13/18 04/13/18 18:59 06:59 18:59 Intake Total 50 1352 240 Output Total 250 Balance -200 1352 240 Intake: IV 50 Intake, IV Titration 650 Amount Sodium Chloride 0.9% 1, 650 000 ml @ 65 mls/hr IV . [id number] [place] Rx#:[id number] Oral 702 240 Output: Estimated Blood Loss 250 Other: # Voids 2 - Exam Gen: This is a 77-year-old female. She is in a recliner and appears to be comfortable and in no acute distress. HEENT: Head is atraumatic, normocephalic. Pupils equal, round. Sclerae is anicteric. Conjunctiva pink. Mucous members of the mouth are slightly dry. Dentition is in good order. No thrush noted. NECK: Supple. No JVD. No lymphadenopathy. No thyromegaly. LUNGS: Clear to auscultation. No wheezes or rhonchi. No intercostal retractions. HEART: Regular rate and rhythm. No murmur. ABDOMEN: Soft. Bowel sounds are present. No masses. No tenderness. No Mena catheter. EXTREMITIES: No pedal edema. No calf tenderness. Dorsalis pedis is +2 bilaterally. SIA hose on bilaterally. Small dressing in place to the right anterior hip with no breakthrough drainage or bleeding. NEUROLOGICAL: Patient is awake, alert and oriented x3. Cranial nerves 2 through 12 are grossly intact. - Labs CBC & Chem 7: 04/13/18 07:11 Labs: Abnormal Lab Results - Last 24 Hours (Table) 04/13/18 Range/Units 07:11 RBC 3.76 L (3.80-5.40) m/uL Plt Count 143 L (150-450) k/uL Lymphocytes # 0.9 L (1.0-4.8) k/uL Assessment and Plan Plan: 1. Osteoarthritis right hip status post total hip arthroplasty, anterior approach. Patient has had no postop complications. Monitor blood pressure. Continue current pain management. Incentive spirometry to reduce incidence of atelectasis and hospital-acquired pneumonia. Continue SIA hose. Patient is on aspirin 325 mg twice daily for DVT prophylaxis. 2. Hypertension. Continue Norvasc 2.5 mg daily. Hydrochlorothiazide will be on hold. 3. Hyperlipidemia. Continue Lipitor 10 mg daily. 4. Obstructive sleep apnea, uses dental plate which will be continued. 5. Seasonal ALLERGIES, stable. Discharge plan: home with [facility]. Impression and plan of care have been directed as dictated by the signing physician. Yue Lucia nurse practitioner acting as scribe for signing physician.
== END 2018-04-13 13:09 | disposition home health service (06) | DRG 470 ==
LOC: 2ORMAIN 05:34 → 4SSUR 11:41
PROVIDERS: ADMIT Orthopaedic Surgery; ATTEND Orthopaedic Surgery
PROC: 30233N0 Transfusion of Autologous Red Blood Cells into Peripheral Vein, Percutaneous Approach (ICD-10-PCS; 2018-04-12)
PROC: 0SR906A Replacement of Right Hip Joint with Oxidized Zirconium on Polyethylene Synthetic Substitute, Uncemented, Open Approach (ICD-10-PCS; principal; 2018-04-12 07:00)
DX: M16.11 Unilateral primary osteoarthritis, right hip (principal); I10 Essential (primary) hypertension; E78.5 Hyperlipidemia, unspecified; G47.33 Obstructive sleep apnea (adult) (pediatric); G89.29 Other chronic pain; M54.9 Dorsalgia, unspecified; K21.9 Gastro-esophageal reflux disease without esophagitis; Z79.82 Long term (current) use of aspirin; Z79.899 Other long term (current) drug therapy; Z96.642 Presence of left artificial hip joint; Z99.89 Dependence on other enabling machines and devices; Z90.710 Acquired absence of both cervix and uterus; Z96.652 Presence of left artificial knee joint; Z98.1 Arthrodesis status; Z88.5 Allergy status to narcotic agent; Z83.3 Family history of diabetes mellitus; Z82.49 Family history of ischemic heart disease and other diseases of the circulatory system
CPT/HCPCS: 36415; 73501; 85025; 86850; 86891; 86900; 86901; 88300

== ENCOUNTER → 2018-07-08 | Outpatient (CLI) | payer MEDICARE ==
--- NOTE | 2018-07-08 14:58 | MM ---
Reason for exam: screening (asymptomatic). Last mammogram was performed 6 months ago. History: Patient is postmenopausal. Took estrogen for 10 years. Physical Findings: A clinical breast exam by your physician is recommended on an annual basis and results should be correlated with mammographic findings. MG 3D Screening Mammo W/Cad Bilateral CC and MLO view(s) were taken. Prior study comparison: June 12, 2013, bilateral digital screening mammo w/CAD. August 27, 2010, mammogram, performed at [facility]. The breast tissue is heterogeneously dense. This may lower the sensitivity of mammography. There are benign appearing vascular calcifications bilaterally. There is no discrete abnormality. ASSESSMENT: Benign, BI-RAD 2 RECOMMENDATION: Routine screening mammogram of both breasts in 1 year.
== END | disposition home or self-care (01) ==
LOC: RADMAMWWP 10:47
PROVIDERS: ATTEND Family Medicine
DX: Z12.31 Encounter for screening mammogram for malignant neoplasm of breast (principal)
CPT/HCPCS: 77063; 77067